=== PATIENT | female | born 1980 | race Caucasian/White ===

== ENCOUNTER 2016-08-09 10:45 | Emergency (ER) | payer OTHER ==
[~2016-08-09] VITALS: Ht 165.1 cm; Wt 69.7 kg
[~2016-08-09 10:45] MED LIST: ENDOCET 5-3251 EACH PO; IBUPROFEN800 MG PO; NOHOMEMEDS; PRENATAL TABLE1 EAC3 PO; SYNTHROID137 MCG PO
[2016-08-09 11:08] LABS: HEMATOCRIT 42.5 % (36.0-46.0); MCH 29.1 PG (29.0-34.0); MCHC 33.4 G/DL (30.0-36.0); MCV 87.1 FL (83-99); PLATELET COUNT 221 K/uL (156-360); RBC DIS.WIDTH-CV 12.9 % (11.8-14.6); RBC DIS.WIDTH-SD 40.3 % (39-53); RED BLOOD COUNT 4.88 M/uL (3.80-5.20); WHITE BLOOD COUNT 6.6 K/uL (4.1-10.2)
[2016-08-09 11:21] LABS: CHLORIDE 106 mEq/L (99-109); POTASSIUM 4.2 mEq/L (3.7-5.4); SODIUM 138 mEq/L (136-147)
[2016-08-09 11:23] LABS: GLUCOSE 94 mg/dL (70-99)
[2016-08-09 11:24] LABS: ANION GAP 12 MEQ/L (2-14)
[2016-08-09 11:25] LABS: TOTAL BILIRUBIN 0.5 mg/dL (0.0-1.0)
[2016-08-09 11:27] LABS: ALKALINE PHOSPHATASE 53 IU/L (3-129); GFR ESTIMATE (CALCULATED) > 59 mL/min/
[2016-08-09 11:28] LABS: UREA NITROGEN (BUN) 12 mg/dL (9-23)
[2016-08-09 11:56] LABS: INFLUENZA A VIRAL ANTIGEN NEGATIVE; INFLUENZA B VIRAL ANTIGEN NEGATIVE
[2016-08-09] MEDS ORDERED: ZOFRAN ODT4 MG PO (12:49)
[2016-08-09 13:03] VITALS: BP 112/69
== END 2016-08-09 13:04 | disposition home or self-care (01) ==
LOC: EME → EDBD 10:45 → EME 10:45 → EXP 10:45
PROVIDERS: Nurse Practitioner Family
DX: B34.9 Viral infection, unspecified (principal); R11.2 Nausea with vomiting, unspecified; E03.9 Hypothyroidism, unspecified
CPT/HCPCS: 80053; 84439; 84443; 85027; 87502; 99281; 99285; J1885; J2405; J7030